=== PATIENT | male | born 1980 | race Caucasian/White ===

== ENCOUNTER 2019-01-08 03:49 | Day surgery (SDC) | payer OTHER ==
--- NOTE | 2019-01-08 04:20 | PDOC ---
Attending Attestation - Resident Resident Name: Diego Vanessason - ED Attending Attestation I have performed the following: I have examined & evaluated the patient, The case was reviewed & discussed with the resident, I agree w/resident's findings & plan - HPI HPI: 01/08/19 04:31 Pt comes with multiple vomiting episodes since midnight; he ate the same thing as the entire family. He has no fever and no chills. RLQ and right kerry pain. Pt has some flank pain but ni dysuria and no penile pain and no testicular pain. - Physicial Exam PE: 01/08/19 04:32 Agree with resident exam - Medical Decision Making 01/08/19 04:33 Pt will have 1L saline and zofran and ofirmev and labs. 01/08/19 05:29 Pt has a 6-7mm stone in the right mid ureter and he will be given morphine and toradol and he will be admitted to med surg for consult. 01/08/19 06:34 We have been textpaging hospitalists since 5am. No response. I txtpaged at 5:45 and 6AM. No response. We will sign out to the day ER team and they will let the day hospitalists know
[2019-01-08] MEDS ORDERED: ACETAMINOPHEN 1000 MG/100 ML VIAL (NON FORMULARY) IVPB ONE (04:32)
[2019-01-08] MEDS ORDERED: SODIUM CHLORIDE 1,000 ML IV STA (04:32)
[2019-01-08] MEDS ORDERED: ONDANSETRON 4 MG/2 ML VIAL IVPB ONE (04:32)
[2019-01-08] MEDS ORDERED: ACETAMINOPHEN INJECTION 100 ML IVPB ONE (04:38)
[2019-01-08] MEDS ORDERED: ONDANSETRON 4 MG/2 ML VIAL ONE (04:39)
--- NOTE | 2019-01-08 04:39 | PDOC ---
History of Present Illness - General Chief Complaint: Pain Stated Complaint: ABDOMINAL PAIN Time Seen by Provider: 01/08/19 04:17 - History of Present Illness Initial Comments: 01/08/19 04:33 38 yo M with no significant pmh who p/w RLQ abdominal pain. Patient reports acute onset of crampy, unremitting, RLQ abdominal pain, beginning at 1200 AM this morning. No identifiable triggers or alleviatrs. Also endorses 3-4 episodes of non bilious, non bloody emesis this morning. Normal bowel habits, and absent BPR. Denies recent travels, sick contacts, or change in diet. Patient denies RICHARDS, vision change palpitations, cough, wheezing, F,C, CP, SOB, urinary complaints, diarrhea, constipation, BPR, hematuria, lightheadedness, weakness, sensory changes. PMHx: as noted above. Denies h/o adbominal surgery, chrocnic NSAID use, prior colonoscopy/endoscopy ROS: as noted SHx: Denies Etoh, tobacco use, IVDA Allergies: NKDA Past History - Past Medical History Allergies/Adverse Reactions: Allergies Allergy/AdvReac Type Severity Reaction Status Date / Time No Known Allergies Allergy Verified 01/08/19 04:12 Home Medications: Ambulatory Orders NK [No Known Home Medication] 01/08/19 Tamsulosin HCl [Flomax] 0.4 mg PO DAILY 7 Days #7 capsule MDD 1 tab 01/08/19 COPD: No - Suicide/Smoking/Psychosocial Hx Smoking History: Never smoked Review of Systems - Review of Systems Comments:: 01/08/19 04:41 GENERAL/CONSTITUTIONAL: No fever or chills. No weakness. HEAD, EYES, EARS, NOSE AND THROAT: No change in vision. No ear pain or discharge. No sore throat. CARDIOVASCULAR: No chest pain or shortness of breath RESPIRATORY: No cough, wheezing, or hemoptysis. GASTROINTESTINAL:+ nausea, vomiting,abdominal pain. No diarrhea or constipation. GENITOURINARY: No dysuria, frequency, or change in urination. MUSCULOSKELETAL: No joint or muscle swelling or pain. No neck or back pain. SKIN: No rash NEUROLOGIC: No headache, vertigo, loss of consciousness, or change in strength/ sensation. ENDOCRINE: No increased thirst. No abnormal weight change HEMATOLOGIC/LYMPHATIC: No anemia, easy bleeding, or history of blood clots. ALLERGIC/IMMUNOLOGIC: No hives or skin allergy. *Physical Exam - Vital Signs Last Vital Signs Temp Pulse Resp BP Pulse Ox 97.4 F L 78 18 137/79 97 01/08/19 04:10 01/08/19 04:10 01/08/19 04:10 01/08/19 04:10 01/08/19 04:10 - Physical Exam Comments: 01/08/19 04:42 GENERAL: Awake, alert, and fully oriented, in no acute distress HEAD: No signs of trauma, normocephalic, atraumatic EYES: PERRLA, EOMI, sclera anicteric, conjunctiva clear ENT: Auricles normal inspection, hearing grossly normal, nares patent, oropharynx clear without exudates. Moist mucosa NECK: Normal ROM, supple, no lymphadenopathy, JVD, or masses LUNGS: No distress, speaks full sentences, clear to auscultation bilaterally HEART: Regular rate and rhythm, normal S1 and S2, no murmurs, rubs or gallops, peripheral pulses normal and equal bilaterally. ABDOMEN: Soft, nontender, normoactive bowel sounds. No guarding, no rebound. No masses GENITOURINARY: Neg scrotal or epidydymal ttp. Absent scrotal lesions, erythema, fluctuance. Neg inguinal lymphadenopathy. Neg penile discharge or lesions. Nml BL cremasteric reflex. EXTREMITIES : Normal inspection, Normal range of motion, no edema. No clubbing or cyanosis. NEUROLOGICAL: Cranial nerves II through XII grossly intact. Normal speech, normal gait, no focal sensorimotor deficits SKIN: Warm, Dry, normal turgor, no rashes or lesions noted Moderate Sedation - Procedure Monitoring Vital Signs: Procedure Monitoring Vital Signs Temperature 97.4 F L 01/08/19 04:10 Pulse Rate 78 01/08/19 04:10 Respiratory Rate 18 01/08/19 04:10 Blood Pressure 137/79 01/08/19 04:10 O2 Sat by Pulse Oximetry (%) 97 01/08/19 04:10 ED Treatment Course - LABORATORY CBC & Chemistry Diagram: 01/08/19 04:30 01/08/19 04:30 Medical Decision Making - Medical Decision Making 01/08/19 04:39 38 yo M with no significant pmh who p/w acute onset of crampy, unremitting, RLQ abdominal pain, beginning at 1200 AM this morning, associated with 3-4 episodes of non bilious emesis. Vitals wnl, AF, A&O3. Physical exam unremarkable. Will consider appendicitis, colitis, nephrolithiasis, pyleonephritis, cystitis, testicular pathology. Low suspicion AAA, Ao dissection. Likely gastroenteritis. ED Course: NS, Zofran, Tylenol 01/08/19 05:13 WBC: 13.3 01/08/19 05:31 BUN/CR: 20/1.5 CT AP: 5.8 mm obstructing proximal R ureteral stone. Right hydronephrosis. Morphine, Toradol 01/08/19 05:35 01/08/19 06:[address] Morales by Dr. Richards Admitted to med/surg *DC/Admit/Observation/Transfer Diagnosis at time of Disposition: Ureteral stone, JUDITH (acute kidney injury) - Discharge Dispostion Condition at time of disposition: Stable Decision to Admit order: Yes - Prescriptions Prescriptions: Tamsulosin HCl [Flomax] 0.4 mg PO DAILY 7 Days #7 capsule MDD 1 tab - Referrals Referrals: Tacos Cervantes MD [Staff Physician] - - Patient Instructions Printed Discharge Instructions: Kidney Stones -- Adult Additional Instructions: Please return to the emergency department with any new or worsening symptoms or concerns. Please follow up with your primary care physician within 72 hours. Please follow up with urology within 48 hours. - Post Discharge Activity
[2019-01-08 04:54] LABS: BASO % 0.3 % (0-2.0); EOS % 0.3 % (0-4.5); HEMATOCRIT 46.2 % (35.4-49); HEMOGLOBIN 15.7 GM/dL (11.7-16.9); LYMPH % 10.1 % (8-40); MCH 28.5 pg (25.7-33.7); MCHC 33.9 g/dl (32.0-35.9); MEAN CELL VOLUME 84.1 fl (80-96); MEAN PLT VOLUME 11.7 fl (7.5-11.1); MONO % 5.1 % (3.8-10.2); NEUT % 84.2 % (42.8-82.8); PLATELET COUNT 210 K/MM3 (134-434); RDW 15.4 % (11.9-15.9); WHITE BLOOD COUNT 13.3 K/mm3 (4.0-10.0)
[2019-01-08] MEDS ORDERED: KETOROLAC TROMETHAMINE 30 MG/1 ML VIAL IVPUSH ONE (05:02)
[2019-01-08] MEDS ORDERED: morphine CARPU-JECT 2 MG/1 ML DISP.SYRIN IVPUSH ONE (05:02)
[2019-01-08 05:08] LABS: INR 1.03 (0.83-1.09); PROTHROMBIN TIME (PATIENT) 12.2 SEC (9.7-13.0)
[2019-01-08] MEDS ORDERED: MORPHINE SULFATE 2 MG/ML VIAL ONE (05:09)
[2019-01-08] MEDS ORDERED: KETOROLAC TROMETHAMINE 30 MG/1 ML VIAL ONE ×2 (05:09→19:25)
[2019-01-08 05:24] LABS: ALBUMIN 3.6 g/dl (3.4-5.0); ALK PHOS 78 U/L (45-117); ANION GAP 6 MMOL/L (8-16); BILIRUBIN,TOTAL 0.3 mg/dL (0.2-1); BLOOD UREA NITROGEN 20 mg/dL (7-18); CALCIUM 8.9 mg/dL (8.5-10.1); CHLORIDE 102 mmol/L (98-107); CO2 28 mmol/L (21-32); CREATININE 1.5 mg/dL (0.55-1.3); GLUCOSE,RANDOM 142 mg/dL (74-106); POTASSIUM 4.3 mmol/L (3.5-5.1); SGOT/AST 22 U/L (15-37); SGPT/ALT 28 U/L (13-61); SODIUM 136 mmol/L (136-145); TOT PROT 7.1 g/dl (6.4-8.2)
[2019-01-08] MEDS ORDERED: SODIUM CHLORIDE 0.9% 500 ML INFUS.BAG IV ONE (05:28)
[2019-01-08 07:38] LABS: URINE APPEARANCE CLEAR; URINE BILIRUBIN NEGATIVE (<2.0 mg/dL); URINE COLOR YELLOW; URINE GLUCOSE (UA) NEGATIVE (NEGATIVE); URINE KETONE NEGATIVE (NEGATIVE); URINE LEUK ESTERASE NEGATIVE (NEGATIVE); URINE NITRITE NEGATIVE (NEGATIVE); URINE PROTEIN 1+ (NEGATIVE); URINE UROBILINOGEN NEGATIVE mg/dL (0.2-1.0)
--- NOTE | 2019-01-08 08:44 | HP ---
CHIEF COMPLAINT: RUQ pain PCP: HISTORY OF PRESENT ILLNESS: 38 y/o M w/PMH of GERD presents to the ER with R sided abdominal pain that started suddenly last night at approximately 1 am. Pt is [place] speaking. He reports being in usual state of health previously to the pain and had severe pain that caused him to throw up countless times. Vomit was non-bloody. Pain was sharp, constant, relieved with vomiting initially but subsequently returned prompting him to come to the ER. He reports having a pain in a similar area approximately 10 years ago in the [place] but no investigation was done. Pt was not able to urinate last night from pain but urinated in ER after receiving pain medication. Urine at that time was without blood and he had no dyusria. He denies any fevers, chills, chest pain, sob, LE edema, dizziness, sick contacts, change in diet. Last BM was one day ago and without blood. At this time after pain meds and zofran he no longer is nauseous and does not have any pain. ER course was notable for: (1) ofirmev, morphine, toradol (2) (3) PAST MEDICAL HISTORY: GERD PAST SURGICAL HISTORY: no surgeries Social History: Smoking: denies Alcohol: social Drugs: denies Family History: denies any FH Allergies No Known Allergies Allergy (Verified 01/08/19 04:12) HOME MEDICATIONS: Home Medications Medication Instructions Recorded NK [No Known Home Medication] 01/08/19 Tamsulosin HCl [Flomax] 0.4 mg PO DAILY 7 Days #7 capsule 01/08/19 MDD 1 tab REVIEW OF SYSTEMS CONSTITUTIONAL: Absent: fever, chills CARDIOVASCULAR: Absent: chest pain, lightheadedness, peripheral edema RESPIRATORY: Absent: cough, shortness of breath GASTROINTESTINAL: +abd pain, nausea, vomiting Absent: diarrhea, constipation, hematochezia GENITOURINARY: Absent: dysuria, frequency, hematuria NEUROLOGIC: Absent: headache, dizziness PHYSICAL EXAMINATION Vital Signs - 24 hr 01/08/19 04:10 Temperature 97.4 F L Pulse Rate 78 Respiratory 18 Rate Blood Pressure 137/79 O2 Sat by Pulse 97 Oximetry (%) GENERAL: Awake, alert, and fully oriented, in no acute distress. HEAD: Normal with no signs of trauma. EYES: extraocular movements intact, sclera anicteric, conjunctiva clear. EARS, NOSE, THROAT: Ears normal, nares patent NECK: Normal range of motion, supple LUNGS: Breath sounds equal, clear to auscultation bilaterally. No wheezes, and no crackles. No accessory muscle use. HEART: Regular rate and rhythm, normal S1 and S2 without murmur, rub or gallop. ABDOMEN: Soft, nontender, not distended, normoactive bowel sounds. MUSCULOSKELETAL: No CVA tenderness. LOWER EXTREMITIES: warm, well-perfused. No calf tenderness. No peripheral edema. NEUROLOGICAL: Cranial nerves II-XII grossly intact. Normal speech. Gait not observed. PSYCHIATRIC: Cooperative. Good eye contact. Appropriate mood and affect. SKIN: Warm, dry Laboratory Results - last 24 hr 01/08/19 01/08/19 01/08/19 04:30 04:30 04:30 WBC 13.3 H RBC 5.50 Hgb 15.7 Hct 46.2 MCV 84.1 MCH 28.5 MCHC 33.9 RDW 15.4 Plt Count 210 MPV 11.7 H Absolute Neuts (auto) 11.2 H Neutrophils % 84.2 H Lymphocytes % 10.1 Monocytes % 5.1 Eosinophils % 0.3 Basophils % 0.3 Nucleated RBC % 0 PT with INR 12.20 INR 1.03 Sodium 136 Potassium 4.3 Chloride 102 Carbon Dioxide 28 Anion Gap 6 L BUN 20 H Creatinine 1.5 H Creat Clearance w eGFR 52.38 Random Glucose 142 H Calcium 8.9 Total Bilirubin 0.3 AST 22 ALT 28 Alkaline Phosphatase 78 Total Protein 7.1 Albumin 3.6 Lipase Urine Color Urine Appearance Urine pH Ur Specific [place] Urine Protein Urine Glucose (UA) Urine Ketones Urine Blood Urine Nitrite Urine Bilirubin Urine Urobilinogen Ur Leukocyte Esterase Blood Type Antibody Screen 01/08/19 01/08/19 01/08/19 04:30 04:30 07:18 WBC RBC Hgb Hct MCV MCH MCHC RDW Plt Count MPV Absolute Neuts (auto) Neutrophils % Lymphocytes % Monocytes % Eosinophils % Basophils % Nucleated RBC % PT with INR INR Sodium Potassium Chloride Carbon Dioxide Anion Gap BUN Creatinine Creat Clearance w eGFR Random Glucose Calcium Total Bilirubin AST ALT Alkaline Phosphatase Total Protein Albumin Lipase 240 Urine Color Yellow Urine Appearance Clear Urine pH 6.0 Ur Specific [place] 1.026 Urine Protein 1+ H Urine Glucose (UA) Negative Urine Ketones Negative Urine Blood 2+ H Urine Nitrite Negative Urine Bilirubin Negative Urine Urobilinogen Negative Ur Leukocyte Esterase Negative Blood Type O POSITIVE Antibody Screen Negative Imaging: Abd/pelvis CT: IIMPRESSION: Punctate nonobstructing left renal stones. 6 x 5 x 8 mm obstructing stone in the proximal right ureter with mild-to- moderate hydronephrosis and mild stranding of the perinephric fat. Active Medications Ceftriaxone Sodium 1 gm/ (Dextrose) 50 mls @ 100 mls/hr IVPB DAILY HALIMA Sodium Chloride (Normal Saline -) 1,000 mls @ 150 mls/hr IV ASDIR HALIMA Morphine Sulfate (Morphine Sulfate) 2 mg IVPUSH Q4H PRN PRN Reason: PAIN LEVEL 6-10 Ondansetron HCl (Zofran Injection) 4 mg IVPUSH Q6H PRN PRN Reason: NAUSEA ASSESSMENT/PLAN: 38 y/o M w/PMH of GERD presents to the ER with R sided abdominal pain and found to have obstructing R ureteral stone with hydronephrosis. -JUDITH secondary to hydronephrosis from R ureteral obstructing stone -NS @ 150 ml/hr -UA pending WBC count, will cover with ceftriaxone 1g qd especially considering elevated WBC in blood currently -Urology consult - Case discussed with Dr. Cervantes -To be kept NPO, Pre-op bloodwork, EKG, for OR today for possible stenting -f/u UCx -Pain control with morphine 2mg q4h -Zofran 4mg IV q6h PRN for nausea -Strain urine for stone collection and analysis -Flomax 0.4mg -DVT ppx -SCDs for now -FEN -NS @ 150 ml/hr -Monitor electrolytes -NPO -Dispo: Admit to M/S Visit type - Emergency Visit Emergency Visit: Yes ED Registration Date: 01/08/19 Care time: The patient presented to the Emergency Department on the above date and was hospitalized for further evaluation of their emergent condition. - New Patient This patient is new to me today: Yes Date on this admission: 01/08/19 - Critical Care Critical Care patient: No
[2019-01-08 09:03] LABS: EPI CELLS RARE /HPF (FEW); URINE MUCUS RARE
[2019-01-08] MEDS ORDERED: MORPHINE SULFATE 2 MG/ML VIAL IVPUSH PRN ×2 (09:29→20:20)
[2019-01-08] MEDS: SODIUM CHLORIDE 1,000 ML IV SCH ×2 (09:30→14:01)
[2019-01-08] MEDS ORDERED: ONDANSETRON 4 MG/2 ML VIAL IVPUSH PRN ×3 (09:53→20:20)
[2019-01-08] MEDS ORDERED: TAMSULOSIN HCL 0.4 MG CAP PO ONE (09:56)
[2019-01-08] MEDS ORDERED: CEFTRIAXONE 1 GM in DEXTROSE 5%-WATER - 50 ML IVPB SCH (10:00)
[2019-01-08] MEDS ORDERED: CEFTRIAXONE 1 GM/50 ML BAG ONE (10:02)
[2019-01-08] MEDS ORDERED: TAMSULOSIN HCL 0.4 MG CAP ONE (10:02)
--- NOTE | 2019-01-08 10:08 | PN ---
Teaching Attending Note Name of Resident: Pop Mallory ATTENDING PHYSICIAN STATEMENT I saw and evaluated the patient. I reviewed the resident's note and discussed the case with the resident. I agree with the resident's findings and plan as documented. SUBJECTIVE: This is a 38 year old man with a history of GERD who comes to the ED complaining of right flank and abdominal pain that came on suddenly at 1 am. This was associated with non-bloody, non-bilious vomiting. He denies fever, chills, melena, rectal bleeding, dysuria, hematuria, urinary frequency. He had a similar episode ~10 years ago while in but did not have an evaluation at the time. OBJECTIVE: Vital Signs Period Temp Pulse Resp BP Sys/Gonzalez Pulse Ox Last 24 Hr 97.4 F 78 18 137/79 97 HEART: S1S2, RRR LUNGS: Clear ABDOMEN: Soft, non-tender, non-distended, normal BS, no CVA/flank tenderness EXTREMITIES: No edema Laboratory Tests 01/08/19 01/08/19 01/08/19 04:30 04:30 04:30 WBC 13.3 H RBC 5.50 Hgb 15.7 Hct 46.2 MCV 84.1 MCH 28.5 MCHC 33.9 RDW 15.4 Plt Count 210 MPV 11.7 H Absolute Neuts (auto) 11.2 H Neutrophils % 84.2 H Lymphocytes % 10.1 Monocytes % 5.1 Eosinophils % 0.3 Basophils % 0.3 Nucleated RBC % 0 PT with INR 12.20 INR 1.03 Sodium 136 Potassium 4.3 Chloride 102 Carbon Dioxide 28 Anion Gap 6 L BUN 20 H Creatinine 1.5 H Creat Clearance w eGFR 52.38 Random Glucose 142 H Calcium 8.9 Total Bilirubin 0.3 AST 22 ALT 28 Alkaline Phosphatase 78 Total Protein 7.1 Albumin 3.6 Lipase Urine Color Urine Appearance Urine pH Ur Specific [place] Urine Protein Urine Glucose (UA) Urine Ketones Urine Blood Urine Nitrite Urine Bilirubin Urine Urobilinogen Ur Leukocyte Esterase Urine WBC (Auto) Urine RBC (Auto) Ur Epithelial Cells Urine Mucus Blood Type Antibody Screen 01/08/19 01/08/19 01/08/19 04:30 04:30 07:18 WBC RBC Hgb Hct MCV MCH MCHC RDW Plt Count MPV Absolute Neuts (auto) Neutrophils % Lymphocytes % Monocytes % Eosinophils % Basophils % Nucleated RBC % PT with INR INR Sodium Potassium Chloride Carbon Dioxide Anion Gap BUN Creatinine Creat Clearance w eGFR Random Glucose Calcium Total Bilirubin AST ALT Alkaline Phosphatase Total Protein Albumin Lipase 240 Urine Color Yellow Urine Appearance Clear Urine pH 6.0 Ur Specific [place] 1.026 Urine Protein 1+ H Urine Glucose (UA) Negative Urine Ketones Negative Urine Blood 2+ H Urine Nitrite Negative Urine Bilirubin Negative Urine Urobilinogen Negative Ur Leukocyte Esterase Negative Urine WBC (Auto) 4 Urine RBC (Auto) 17 Ur Epithelial Cells Rare Urine Mucus Rare Blood Type O POSITIVE Antibody Screen Negative 01/08/19 08:12 WBC RBC Hgb Hct MCV MCH MCHC RDW Plt Count MPV Absolute Neuts (auto) Neutrophils % Lymphocytes % Monocytes % Eosinophils % Basophils % Nucleated RBC % PT with INR INR Sodium Potassium Chloride Carbon Dioxide Anion Gap BUN Creatinine Creat Clearance w eGFR Random Glucose Calcium Total Bilirubin AST ALT Alkaline Phosphatase Total Protein Albumin Lipase Urine Color Urine Appearance Urine pH Ur Specific [place] Urine Protein Urine Glucose (UA) Urine Ketones Urine Blood Urine Nitrite Urine Bilirubin Urine Urobilinogen Ur Leukocyte Esterase Urine WBC (Auto) Urine RBC (Auto) Ur Epithelial Cells Urine Mucus Blood Type O POSITIVE Antibody Screen Home Medications Medication Instructions Recorded NK [No Known Home Medication] 01/08/19 Tamsulosin HCl [Flomax] 0.4 mg PO DAILY 7 Days #7 capsule 01/08/19 MDD 1 tab ASSESSMENT AND PLAN: This is a 38 year old man with a history of GERD who presented to the ED with sudden onset of right flank and abdominal pain with vomiting. 1. Acute kidney injury secondary to obstructing right proximal ureteral stone - NPO - IV fluid - Start ceftriaxone, Flomax - Pain control - Zofran as needed for nausea - Monitor BUN, creatinine - Follow up urine culture - Strain urine - Urology consult for possible lithotripsy, stent placement
--- NOTE | 2019-01-08 12:46 | CON.GU ---
Consult Consult Specialty:: Reason for Consultation:: R ureteral calculus - History of Present Illness Chief Complaint: R flank pain History of Present Illness: 38 y/o M w/PMH of GERD presents to the ER with R sided abdominal pain that started suddenly last night at approximately 1 am. Pt is [place] speaking. He reports being in usual state of health previously to the pain and had severe pain that caused him to throw up countless times. Vomit was non-bloody. Pain was sharp, constant, relieved with vomiting initially but subsequently returned prompting him to come to the ER. He reports having a pain in a similar area approximately 10 years ago in the [place] but no investigation was done. Pt was not able to urinate last night from pain but urinated in ER after receiving pain medication. Urine at that time was without blood and he had no dyusria. He denies any fevers, chills, chest pain, sob, LE edema, dizziness, sick contacts, change in diet. Last BM was one day ago and without blood. At this time after pain meds and zofran he no longer is nauseous and does not have any pain. CTAP showed 8 mm obstructing R proximal ureteral calulus w mod hydro and cons req. - History Source History Provided By: Patient, Medical Record Limitations to Obtaining History: No Limitations - Past Medical History Gastrointestinal: Yes: GERD - Smoking History Smoking history: Never smoked Home Medications - Allergies Allergies/Adverse Reactions: Allergies Allergy/AdvReac Type Severity Reaction Status Date / Time No Known Allergies Allergy Verified 01/08/19 04:12 - Home Medications Home Medications: Ambulatory Orders NK [No Known Home Medication] 01/08/19 Tamsulosin HCl [Flomax] 0.4 mg PO DAILY 7 Days #7 capsule MDD 1 tab 01/08/19 Review of Systems - Review of Systems Gastrointestinal: reports: Nausea, Vomiting Genitourinary: reports: Flank Pain Physical Exam- Vital Signs: Vital Signs Temperature 98.9 F 01/08/19 09:54 Pulse Rate 97 H 01/08/19 09:54 Respiratory Rate 20 01/08/19 09:54 Blood Pressure 131/78 01/08/19 09:54 O2 Sat by Pulse Oximetry (%) 99 01/08/19 09:00 Renal/: Yes: CVA Tenderness - Right Labs: CBC, BMP 01/08/19 04:30 02/25/19 04:30 Imaging - Results Cat Scan: Report Reviewed Problem List - Problems (1) Hydronephrosis concurrent with and due to calculi of kidney and ureter Assessment/Plan: cysto and R JJ stent insertion Code(s): N13.2 - HYDRONEPHROSIS WITH RENAL AND URETERAL CALCULOUS OBSTRUCTION (2) JUDITH (acute kidney injury) Code(s): N17.9 - ACUTE KIDNEY FAILURE, UNSPECIFIED (3) Ureteral stone Code(s): N20.1 - CALCULUS OF URETER
[2019-01-08 13:00] VITALS: BMI 26.8
--- NOTE | 2019-01-08 15:16 | OP ---
Operative Note - Note: Operative Date: 01/08/19 Pre-Operative Diagnosis: R ureteral calculus, R hydronephrosis Operation: cystoscopy and R JJ stent insertion Findings: 8 mm R proximal ureteral calculus w mod hydro Post-Operative Diagnosis: Same as Pre-op Surgeon: Tacos Cervantes Anesthesiologist/STRIP WINDER: Trevor Campos Anesthesia: General Estimated Blood Loss (mls): 0 Drains & Tubes with Location: 7 fr 28 cm R JJ stent Operative Report Dictated: Yes
[2019-01-08] MEDS ORDERED: LACTATED RINGERS SOLUTION 1,000 ML IV SCH (19:15)
[2019-01-08] MEDS ORDERED: MIDAZOLAM HCL 2 MG/2 ML SINGLE DOSE VIAL ONE (19:19)
[2019-01-08] MEDS ORDERED: PROPOFOL 20 ML ONE ×2 (19:21→19:34)
[2019-01-08] MEDS ORDERED: LIDOCAINE HCL/PF 2% SDV 5ML VIAL ONE (19:21)
[2019-01-08] MEDS ORDERED: DEXAMETHASONE SOD PHOSPHATE 4 MG/1 ML VIAL ONE (19:25)
[2019-01-08] MEDS ORDERED: ceFAZolin 2 GRAM PREMIX BAG IVPB ONE (19:34)
[2019-01-08] MEDS ORDERED: ceFAZolin SODIUM 1 GM VIAL IVPB ONE (19:34)
[2019-01-08] MEDS ORDERED: ceFAZolin SODIUM 1 GM VIAL ONE (19:39)
[2019-01-08] MEDS ORDERED: LIDOCAINE HCL 2% JELLY 10 ML CARTRIDGE TP ONE ×2 (19:47)
--- NOTE | 2019-01-08 20:24 | EKG ---
Test Reason : Blood Pressure : / mmHG Vent. Rate : 081 BPM Atrial Rate : 081 BPM P-R Int : 126 ms QRS Dur : 088 ms QT Int : 356 ms P-R-T Axes : 031 000 003 degrees QTc Int : 413 ms NORMAL SINUS RHYTHM NONSPECIFIC T WAVE ABNORMALITY ABNORMAL ECG NO PREVIOUS ECGS AVAILABLE Confirmed by ELINA VENEGAS, JOHANA ([id number]) on 01/08/2019 8:24:06 PM Referred By: MARYANN CUMMINGS Confirmed By:JOHANA ANTOINE MD
[2019-01-08] MEDS: LACTATED RINGERS SOLUTION 1,000 ML IV SCH ×2 (21:00)
[2019-01-09] MEDS: oxyCODONE HCL 5 MG TABLET PO PRN ×2 (06:34→14:04)
[2019-01-09] MEDS: ACETAMINOPHEN 325 MG TABLET (FP) PO PRN ×2 (06:35→14:06)
[2019-01-09] MEDS: LACTATED RINGERS SOLUTION 1,000 ML IV SCH (06:36)
[2019-01-09 06:59] LABS: BASO % 0.2 % (0-2.0); HEMATOCRIT 40.4 % (35.4-49); HEMOGLOBIN 13.7 GM/dL (11.7-16.9); LYMPH % 6.3 % (8-40); MCH 28.5 pg (25.7-33.7); MCHC 33.9 g/dl (32.0-35.9); MEAN CELL VOLUME 83.9 fl (80-96); MEAN PLT VOLUME 10.5 fl (7.5-11.1); MONO % 3.1 % (3.8-10.2); NEUT % 90.4 % (42.8-82.8); PLATELET COUNT 163 K/MM3 (134-434); RBC 4.82 M/mm3 (4.00-5.60); RDW 15.1 % (11.9-15.9); WHITE BLOOD COUNT 9.9 K/mm3 (4.0-10.0)
[2019-01-09 07:33] LABS: ALK PHOS 64 U/L (45-117); ANION GAP 5 MMOL/L (8-16); BILIRUBIN,TOTAL 0.4 mg/dL (0.2-1); BLOOD UREA NITROGEN 18 mg/dL (7-18); CALCIUM 8.3 mg/dL (8.5-10.1); CHLORIDE 106 mmol/L (98-107); CO2 27 mmol/L (21-32); CREATININE 1.2 mg/dL (0.55-1.3); GLUCOSE,RANDOM 119 mg/dL (74-106); MAGNESIUM 1.9 mg/dL (1.8-2.4); PHOSPHOROUS 4.1 mg/dL (2.5-4.9); POTASSIUM 4.5 mmol/L (3.5-5.1); SGOT/AST 22 U/L (15-37); SGPT/ALT 31 U/L (13-61); SODIUM 138 mmol/L (136-145); TOT PROT 6.1 g/dl (6.4-8.2)
[2019-01-09 08:26] VITALS: BP 130/88; PULSE 87; TEMP 98.3
--- NOTE | 2019-01-09 09:18 | PN ---
Physical Exam: SUBJECTIVE: Patient seen and examined OBJECTIVE: Vital Signs Period Temp Pulse Resp BP Sys/Gonzalez Pulse Ox Last 24 Hr 97.6 F-98.9 F 71-97 15-20 115-138/61-89 96-99 GENERAL: The patient is awake, alert, and fully oriented, in no acute distress. HEAD: Normal with no signs of trauma. EYES: PERRL, extraocular movements intact, sclera anicteric, conjunctiva clear. No ptosis. ENT: Ears normal, nares patent, oropharynx clear without exudates, moist mucous membranes. NECK: Trachea midline, full range of motion, supple. LUNGS: Breath sounds equal, clear to auscultation bilaterally, no wheezes, no crackles, no accessory muscle use. HEART: Regular rate and rhythm, S1, S2 without murmur, rub or gallop. ABDOMEN: Soft, nontender, nondistended, normoactive bowel sounds, no guarding, no rebound, no hepatosplenomegaly, no masses. EXTREMITIES: 2+ pulses, warm, well-perfused, no edema. NEUROLOGICAL: Cranial nerves II through XII grossly intact. Normal speech, gait not observed. PSYCH: Normal mood, normal affect. SKIN: Warm, dry, normal turgor, no rashes or lesions noted Laboratory Results - last 24 hr 01/08/19 01/08/19 01/08/19 07:18 08:12 11:12 WBC RBC Hgb Hct MCV MCH MCHC RDW Plt Count MPV Absolute Neuts (auto) Neutrophils % Lymphocytes % Monocytes % Eosinophils % Basophils % Nucleated RBC % PTT (Actin FS) 27.4 Sodium Potassium Chloride Carbon Dioxide Anion Gap BUN Creatinine Creat Clearance w eGFR Random Glucose Calcium Phosphorus Magnesium Total Bilirubin AST ALT Alkaline Phosphatase Total Protein Albumin Urine WBC (Auto) 4 Urine RBC (Auto) 17 Ur Epithelial Cells Rare Urine Mucus Rare Blood Type O POSITIVE 01/09/19 01/09/19 06:45 06:45 WBC 9.9 RBC 4.82 Hgb 13.7 Hct 40.4 MCV 83.9 MCH 28.5 MCHC 33.9 RDW 15.1 Plt Count 163 D MPV 10.5 D Absolute Neuts (auto) 9.0 H Neutrophils % 90.4 H Lymphocytes % 6.3 L D Monocytes % 3.1 L Eosinophils % 0.0 D Basophils % 0.2 Nucleated RBC % 0 PTT (Actin FS) Sodium 138 Potassium 4.5 Chloride 106 Carbon Dioxide 27 Anion Gap 5 L BUN 18 Creatinine 1.2 Creat Clearance w eGFR > 60 Random Glucose 119 H Calcium 8.3 L Phosphorus 4.1 Magnesium 1.9 Total Bilirubin 0.4 AST 22 ALT 31 Alkaline Phosphatase 64 Total Protein 6.1 L Albumin 3.0 L Urine WBC (Auto) Urine RBC (Auto) Ur Epithelial Cells Urine Mucus Blood Type Active Medications Generic Name Dose Route Start Last Admin Trade Name Bartolomeq PRN Reason Stop Dose Admin Acetaminophen 650 mg 01/08/19 19:55 01/09/19 06:35 Tylenol - PO 01/09/19 19:54 650 mg Q4HPO PRN Administration PAIN LEVEL 4 - 6 Fentanyl 50 mcg 01/08/19 20:20 Sublimaze Injection - IVPUSH [id number] PRN PAIN-PACU ORDER X 4 DOSES ONLY Ceftriaxone Sodium 1 gm/ 50 mls @ 100 mls/hr 01/09/19 10:00 Dextrose IVPB DAILY HALIMA Lactated Ringer's 1,000 mls @ 75 mls/hr 01/08/19 20:20 01/09/19 06:36 Lactated Ringers Solution IV 75 mls/hr ASDIR HALIMA Administration Morphine Sulfate 2 mg 01/08/19 20:20 01/08/19 23:24 Morphine Sulfate IVPUSH 2 mg Q4H PRN Administration PAIN LEVEL 6-10 Ondansetron HCl 4 mg 01/08/19 20:20 Zofran Injection IVPUSH Q6H PRN NAUSEA Oxycodone HCl 10 mg 01/08/19 20:12 01/09/19 06:34 Roxicodone - PO 01/09/19 20:11 10 mg Q4HPO PRN Administration PAIN LEVEL 4 - 6 Polyethylene Glycol 17 gm 01/09/19 10:00 Miralax (For Daily Use) - PO BID HALIMA CBC, BMP 01/09/19 06:45 01/09/19 06:45 ASSESSMENT/PLAN:
[2019-01-09] MEDS ORDERED: cefTRIAXone SODIUM 1 GM VIAL ONE (09:32)
[2019-01-09] MEDS ORDERED: DEXTROSE 5%-WATER - 50 ML IVPB ONE (09:32)
[2019-01-09] MEDS ORDERED: CEFTRIAXONE 1 GM in DEXTROSE 5%-WATER - 50 ML IVPB SCH (10:00)
[2019-01-09] MEDS ORDERED: POLYETHYLENE GLYCOL 3350 119 GM BTL PO SCH (10:00)
--- NOTE | 2019-01-09 12:56 | DS ---
Physical Exam: SUBJECTIVE: Patient seen and examined at bed side , presented with sever right flank pain and was found to have obstructed proximal ureteral stone , S/P cystoscopy and stent placement by Urologist Dr Cervantes on my present pt denies any pain , fever, chills, N/V he reports pain when passing urine. pt will be send home with bactrim , folmax and Percocet. OBJECTIVE: Vital Signs Period Temp Pulse Resp BP Sys/Gonzalez Pulse Ox Last 24 Hr 97.6 F-98.5 F 71-97 15-20 115-138/61-89 96-99 PHYSICAL EXAM GENERAL:AAOx3 in AND HEAD: NC/AT EYES: PERRL, EOMI , conjunctiva clear. LUNGS: Breath sounds equal, clear to auscultation bilaterally, no wheezes, no crackles, no accessory muscle use. HEART: Regular rate and rhythm, S1, S2 without murmur, rub or gallop. ABDOMEN: obese, Soft, nontender, nondistended, normoactive bowel sounds, NEUROLOGICAL: No focal deficit . Normal speech, gait not observed. PSYCH: Normal mood, normal affect. SKIN: Warm, dry, normal turgor, LABS Laboratory Results - last 24 hr 01/09/19 01/09/19 06:45 06:45 WBC 9.9 RBC 4.82 Hgb 13.7 Hct 40.4 MCV 83.9 MCH 28.5 MCHC 33.9 RDW 15.1 Plt Count 163 D MPV 10.5 D Absolute Neuts (auto) 9.0 H Neutrophils % 90.4 H Lymphocytes % 6.3 L D Monocytes % 3.1 L Eosinophils % 0.0 D Basophils % 0.2 Nucleated RBC % 0 Sodium 138 Potassium 4.5 Chloride 106 Carbon Dioxide 27 Anion Gap 5 L BUN 18 Creatinine 1.2 Creat Clearance w eGFR > 60 Random Glucose 119 H Calcium 8.3 L Phosphorus 4.1 Magnesium 1.9 Total Bilirubin 0.4 AST 22 ALT 31 Alkaline Phosphatase 64 Total Protein 6.1 L Albumin 3.0 L CBC, BMP 01/09/19 06:45 01/09/19 06:45 CT Abdomen/pelvic 01/08/2019 Punctate nonobstructing left renal stones. 6 x 5 x 8 mm obstructing stone in the proximal right ureter with [id number] hydronephrosis and mild stranding of the perinephric fat. HOSPITAL COURSE: Date of Admission:01/08/19 Date of Discharge: 01/09/19 38 y/o man with h/o GERD who presented with R flank pain and was found to have Right proximal ureteral stone and hydro. Now s/p R JJ stent placement. pt feels better with intermittent pain in R flank with urination which is expected. bactrim were felt necessary per uro, and prescribed. urine cx to be followed by uro after dc pain control after dc per uro Percocet Q 4 hr as needed for pain , flomax 0.4 mg daily for 7 days. f/u with uro for change/removal of stent when appropriate discharged home.will follow with primary and Urologist. DR Cervantes. Minutes to complete discharge: 45 Discharge Summary Reason For Visit: ACUTE KIDNEY INJURY,CALCULUS OF URETER Current Active Problems Ureteral stone (Acute) Condition: Stable - Instructions Diet, Activity, Other Instructions: you presented to the hospital due to kidney stone , stent was placed to relife the ureter obstruction Please take following meds prescribed by your urologist Bactrim antibiotic twice daily for 7 days Percocet (5-325) 1 tab every 4 hours for pain flomax 0.4 mg daily for 7 days to help passing the stone Please return to the emergency department with any new or worsening symptoms or concerns. Please follow up with your primary care physician within 72 hours. Please follow up with urology within [address] Cervantes to follow the final urine culture Referrals: Tacos Cervantes MD [Staff Physician] - Disposition: HOME - Home Medications Comprehensive Discharge Medication List: Ambulatory Orders Oxycodone HCl/Acetaminophen [Percocet 5-325 mg Tablet] 1 - 2 tab PO Q4H PRN #20 tablet MDD 6 01/08/19 Sulfamethoxazole/Trimethoprim [Bactrim Ds Tablet] 1 each PO BID 7 Days #14 tablet 01/08/19 Tamsulosin HCl [Flomax] 0.4 mg PO DAILY 7 Days #7 capsule MDD 1 tab 01/08/19 This patient is new to me today: Yes Date on this admission: 01/09/19 Emergency Visit: Yes Care time: The patient presented to the Emergency Department on the above date and was hospitalized for further evaluation of their emergent condition. Critical Care patient: No - Discharge Referral Referred to [facility] Med [facility] No
--- NOTE | 2019-01-09 13:13 | PN ---
Teaching Attending Note Name of Resident: Dwayne Sanford ATTENDING PHYSICIAN STATEMENT I saw and evaluated the patient. I reviewed the resident's note and discussed the case with the resident. I agree with the resident's findings and plan as documented. SUBJECTIVE: No fever or chills. has R flank pain with urination only. pinkish urine , no abd pain. No N/V OBJECTIVE: NAD Cv: RRR Lungs: CTAB ext : no edema or erythema Abd: soft, NT, ND, NL BS , no CVA tenderness ASSESSMENT AND PLAN: 38 y/o man with h/o GERD who presented with R flank pain and was found to have R ureteral stone and hydro. Now s/p R JJ stent placement. 1- R ureteral stone and hydro s/p JJ stent. feels better with intermittent pain in R flank with urination which is expected. Abx were felt necessary per uro, and prescribed. urine cx to be followed by uro after dc pain control after dc per uro f/u with uro for change/removal of stent when appropriate flomax after dc dc home
== END 2019-01-09 14:29 | disposition home or self-care (01) ==
LOC: EDBD → JER 03:49 → JERBED 05:33 → JASUSAT 05:33 → UNDOADMOB 05:33 → SUATTDRO 05:33 → J7W 11:31 → JERBED 11:31 → J7W 11:31 → JASUSAT 17:15
PROVIDERS: ATTEND Internal Medicine
PROC: 0TP97DZ Removal of Intraluminal Device from Ureter, Via Natural or Artificial Opening (ICD-10-PCS; principal; 2019-01-08 20:00)
PROC: 0T767DZ Dilation of Right Ureter with Intraluminal Device, Via Natural or Artificial Opening (ICD-10-PCS; 2019-01-08 20:00)
DX: N20.1 Calculus of ureter (principal); N13.30 Unspecified hydronephrosis
CPT/HCPCS: 36415; 74176-TC; 76000-TC-FY; 80053; 81003; 81015; 83690; 83735; 84100; 85025; 85610; 85730; 86850; 86900; 86901; 87086; 93005; 93010; 99285-25; J0131; J7030

== ENCOUNTER 2019-01-12 10:14 | Day surgery (SDC) | payer SELFPAY ==
[2019-01-11 16:59] VITALS: BMI 26.7
--- NOTE | 2019-01-12 11:18 | HP ---
History & Physical Update - History History: No Change - Physical Physical: No Change - Assessment Assessment: No Change - Plan Plan: No Change
--- NOTE | 2019-01-12 11:20 | OP ---
Operative Note - Note: Operative Date: 01/12/19 Pre-Operative Diagnosis: R ureteral calculus, R hydronephrosis Operation: R ureteroscopy and JJ stent change Findings: 8 mm R ureteral calculus Post-Operative Diagnosis: Same as Pre-op (Passed R ureteral calculus) Surgeon: Tacos Cervantes Anesthesiologist/OBSTETRICS GYNECOLOGY MD: Tayla Medina Anesthesia: General Specimens Removed: R JJ stent Estimated Blood Loss (mls): 0 Drains & Tubes with Location: 7 fr 28 cm R JJ stent Operative Report Dictated: Yes
[2019-01-12] MEDS ORDERED: PROPOFOL 20 ML ONE ×2 (11:26)
[2019-01-12] MEDS ORDERED: LIDOCAINE HCL 2% JELLY 10 ML CARTRIDGE ONE (11:40)
[2019-01-12] MEDS ORDERED: DESFLURANE GAS 240 ML BOTTLE IH ONE (11:40)
[2019-01-12] MEDS ORDERED: ceFAZolin SODIUM 1 GM VIAL IVPB ONE (11:45)
[2019-01-12] MEDS ORDERED: ceFAZolin SODIUM 1 GM VIAL ONE (11:45)
[2019-01-12] MEDS ORDERED: DEXAMETHASONE SOD PHOSPHATE 4 MG/1 ML VIAL ONE (11:56)
[2019-01-12] MEDS ORDERED: LIDOCAINE HCL 2% JELLY 10 ML CARTRIDGE TP ONE (12:04)
[2019-01-12] MEDS ORDERED: KETOROLAC TROMETHAMINE 30 MG/1 ML VIAL ONE (12:05)
[2019-01-12] MEDS ORDERED: ONDANSETRON 4 MG/2 ML VIAL IVPUSH PRN (12:26)
[2019-01-12] MEDS ORDERED: ACETAMINOPHEN 325 MG TABLET (FP) PO PRN (12:26)
[2019-01-12] MEDS ORDERED: oxyCODONE HCL 5 MG TABLET PO PRN (12:26)
[2019-01-12] MEDS ORDERED: LACTATED RINGERS SOLUTION 1,000 ML IV SCH (12:30)
[2019-01-12 15:16] VITALS: BP 128/78; PULSE 82; TEMP 98
--- NOTE | 2019-01-13 07:07 | OP ---
DATE OF OPERATION: 01/12/2019 PREOPERATIVE DIAGNOSES: Right ureteral calculus, right hydronephrosis. POSTOPERATIVE DIAGNOSES: Right ureteral calculus, right hydronephrosis (passed right ureteral calculus). PROCEDURE: Right ureteroscopy and double-J stent change. SURGEON: Tacos Lopez MD EMR IMPLEMENTATION SPECIALIST: None. ANESTHESIA: General via laryngeal mask. ANESTHESIOLOGIST: Tayla Medina, REF-DO SPECIMENS: Right double-J stent. CULTURES: None. DRAINS: Right 7-Bahamian, 28-cm double-J stent. ESTIMATED BLOOD LOSS: None. COMPLICATIONS: None. PROCEDURE: Patient was brought in the operating room, placed on the operating table in the supine position. After administration of general anesthesia via laryngeal mask intravenous antibiotics were administered. Sequential compression devices were placed. Patient was placed in the dorsal lithotomy position. The perineum and genitals were prepped and draped in the usual sterile manner. A 22-Bahamian cystoscope was inserted into the bladder under direct vision. Anterior and posterior urethras were normal. The bladder was entered, thoroughly inspected. There were no tumors, stones or inflammation. Right double-J stent was in good position. It was grasped at its tip, brought to the urethral meatus, cannulated with a 0.038 guidewire which was advanced to the level of the right renal pelvis under fluoroscopic guidance. Double-J stent was removed. The semirigid ureteroscope was now inserted alongside the guidewire to the level of the proximal ureter where no stone was seen. Under fluoroscopy now retrograde pyelogram was done. Also no stone was seen. There was prompt drainage of contrast and no hydronephrosis. The ureteroscope was withdrawn. The entire course of the ureter was reinspected and no stone was seen. The ureteroscope was removed, the cystoscope back-loaded and a 7-Bahamian, 28-cm right double-J stent was inserted over the guidewire under direct visual and fluoroscopic guidance leaving 1 coil in the renal pelvis and 1 coil in the bladder. Bladder was emptied, cystoscope removed. Lidocaine gel 2%, 10 mL, was instilled per urethra. Tolerated the procedure well, transferred to the recovery room in stable condition. He will be followed up in the office Tuesday for stent removal. TACOS LOPEZ M.D. [id number]
== END 2019-01-12 15:15 | disposition home or self-care (01) ==
LOC: JASU-SURG 10:14
PROVIDERS: ATTEND Urology
PROC: 0TP97DZ Removal of Intraluminal Device from Ureter, Via Natural or Artificial Opening (ICD-10-PCS; principal; 2019-01-12 12:00)
PROC: 0T767DZ Dilation of Right Ureter with Intraluminal Device, Via Natural or Artificial Opening (ICD-10-PCS; 2019-01-12 12:00)
DX: N20.1 Calculus of ureter (principal); N13.39 Other hydronephrosis
CPT/HCPCS: 76000-TC-FY; 94760

== ENCOUNTER 2019-05-14 21:01 | Emergency (ER) | payer SELFPAY ==
[2019-05-14 21:06] VITALS: BP 120/86; PULSE 77; TEMP 98.3; BMI 27.5
--- NOTE | 2019-05-14 21:08 | PDOC ---
Rapid Medical Evaluation Chief Complaint: Back Pain Time Seen by Provider: 05/14/19 21:03 Medical Evaluation: Allergies Allergy/AdvReac Type Severity Reaction Status Date / Time No Known Allergies Allergy Verified 01/11/19 16:53 05/14/19 21:05 I have performed a brief in-person evaluation of this patient. The patient presents with a chief complaint of: back pain x 3 mos, worsen this past weekend, no relief with tylenol . Had Hx of kidney stones in Dec, unsure as to same pain Pertinent physical exam findings: no bone pain/ Right lower back/ muscles , I have ordered the following: UA/ Ucx The patient will proceed to the ED for further evaluation. 05/14/19 21:07 Discharge Disposition - Diagnosis Back pain Qualifiers: Back pain location: low back pain - Referrals - Patient Instructions - Post Discharge Activity
--- NOTE | 2019-05-14 22:21 | PDOC ---
History of Present Illness - General Chief Complaint: Back Pain Stated Complaint: LOWER BACK PAIN Time Seen by Provider: 05/14/19 21:03 History Source: Patient - History of Present Illness Initial Comments: 05/14/19 22:45 38 year old male with right flank pain radiating to right lower quadrant, denies Vomiting, diarrhea, constipation, urinary symptoms. Pmhx: kidney stones s/p Stent Urologist Dr. Acuna Past History - Past Medical History Allergies/Adverse Reactions: Allergies Allergy/AdvReac Type Severity Reaction Status Date / Time No Known Allergies Allergy Verified 05/14/19 21:06 Home Medications: Ambulatory Orders Sulfamethoxazole/Trimethoprim [Bactrim Ds Tablet] 1 each PO BID 7 Days #14 tablet 01/08/19 Tamsulosin HCl [Flomax] 0.4 mg PO DAILY 7 Days #7 capsule MDD 1 tab 01/08/19 Oxycodone HCl/Acetaminophen [Percocet 5-325 mg Tablet] 1 tab PO Q8H PRN #9 tab MDD 3 tab 01/09/19 Oxycodone HCl/Acetaminophen [Oxycodone-Acetaminophen 5-325] 1 each PO Q4H PRN # 60 tablet MDD 8 01/12/19 Sulfamethoxazole/Trimethoprim [Bactrim Ds -] 1 tab PO BID #14 tablet 01/12/19 Ibuprofen 600 mg PO QID #30 tablet 05/15/19 Oxycodone HCl/Acetaminophen [Percocet 5-325 mg Tablet] 1 tab PO Q6H PRN #10 tablet MDD 4 05/15/19 Tamsulosin HCl [Flomax] 0.4 mg PO DAILY #14 cap.er.24h 05/15/19 Anemia: No Asthma: No Cancer: No Cardiac Disorders: No CVA: No COPD: No Diabetes: No Disorders: Yes HTN: No Seizures: No - Suicide/Smoking/Psychosocial Hx Smoking History: Never smoked Hx Alcohol Use: Yes (0-2/week) Drug/Substance Use Hx: No Substance Use Type: None Review of Systems - Review of Systems Able to Perform ROS?: Yes Is the patient limited Georgian proficient: No Constitutional: No: Symptoms Reported, See HPI, Chills, Diaphoresis, Fever, Loss of Appetite, Malaise, Night Sweats, Weakness, Weight Stable, Unintentional Wgt. Loss, Unexplained wgt Loss, Other HEENTM: No: Symptoms Reported, See HPI, Eye Pain, Blurred Vision, Tearing, Recent change in vision, Double Vision, Cataracts, Ear Pain, Ocular Prothesis, Ear Discharge, Nose Pain, Nose Congestion, Tinnitus, Nose Bleeding, Hearing Loss , Throat Pain, Throat Swelling, Mouth Pain, Dental Problems, Difficulty Swallowing, Mouth Swelling, Other *Physical Exam - Vital Signs Last Vital Signs Temp Pulse Resp BP Pulse Ox 98.3 F 77 18 120/86 99 05/14/19 21:03 05/14/19 21:03 05/14/19 21:03 05/14/19 21:03 05/14/19 21:03 - Physical Exam General Appearance: Yes: Appropriately Dressed Respiratory/Chest: positive: Lungs Clear, Normal Breath Sounds Cardiovascular: positive: Regular Rhythm, Regular Rate Gastrointestinal/Abdominal: positive: Normal Bowel Sounds, Soft ED Treatment Course - LABORATORY CBC & Chemistry Diagram: 05/15/19 00:21 05/15/19 00:21 Medical Decision Making - Medical Decision Making A: right obstructed stone P: labs spiral CT 05/15/19 02:[address]: Lung bases are clear. The visualized cardiac chambers are normal size and configuration. There is mild right hydronephrosis secondary to an 8 mm proximal to mid right ureteral stone. No additional stones are identified. Normal unenhanced liver, gallbladder, pancreas, spleen, adrenal glands and left kidney. The stomach and abdominal small and large bowel are normal. There is no aortic aneurysm. There is no significant retroperitoneal lymphadenopathy. The pelvic small and large bowel are normal. The appendix is normal. The urinary bladder and *DC/Admit/Observation/Transfer Diagnosis at time of Disposition: Flank pain, acute, Kidney stone on right side - Discharge Dispostion Disposition: HOME Condition at time of disposition: Stable - Prescriptions Prescriptions: Ibuprofen 600 mg PO QID #30 tablet Oxycodone HCl/Acetaminophen [Percocet 5-325 mg Tablet] 1 tab PO Q6H PRN #10 tablet MDD 4 PRN Reason: Pain Tamsulosin HCl [Flomax] 0.4 mg PO DAILY #14 cap.er.24h - Referrals Referrals: Tacos Cervantes MD [Staff Physician] - Call tomorrow - Patient Instructions Printed Discharge Instructions: Kidney Stones -- Adult Additional Instructions: Drink plenty of fluids Take Flomax as prescribed Take ibuprofen every 6 hours as needed for [id number] pain Take Percocet every 6 hours as needed for moderate pain Follow-up with a urologist as soon as possible Return to the emergency room if symptoms worsen - Post Discharge Activity Forms/Work/School Notes: Back to Work
--- NOTE | 2019-05-14 22:29 | PDOC ---
*Physical Exam - Vital Signs Last Vital Signs Temp Pulse Resp BP Pulse Ox 98.3 F 77 18 120/86 99 05/14/19 21:03 05/14/19 21:03 05/14/19 21:03 05/14/19 21:03 05/14/19 21:03 ED Treatment Course - LABORATORY CBC & Chemistry Diagram: 05/15/19 00:21 05/15/19 00:21 Medical Decision Making - Medical Decision Making 05/14/19 22:29 Patient seen by the advanced practice provider under my direct supervision. Ancillary testing reviewed as necessary. I agree with plan as outlined by the advanced practice provider. *DC/Admit/Observation/Transfer Diagnosis at time of Disposition: Flank pain, acute - Referrals - Patient Instructions - Post Discharge Activity
[2019-05-14] MEDS ORDERED: SODIUM CHLORIDE 1,000 ML IV STA (22:54)
[2019-05-14] MEDS ORDERED: KETOROLAC TROMETHAMINE 30 MG/1 ML VIAL IVPUSH ONE (22:54)
[2019-05-15] MEDS ORDERED: KETOROLAC TROMETHAMINE 30 MG/1 ML VIAL ONE (00:07)
[2019-05-15 00:35] LABS: BASO % 0.3 % (0-2.0); EOS % 1.8 % (0-4.5); HEMATOCRIT 42.9 % (35.4-49); LYMPH % 22.4 % (8-40); MCHC 32.6 g/dl (32.0-35.9); MEAN CELL VOLUME 82.9 fl (80-96); MEAN PLT VOLUME 10.3 fl (7.5-11.1); MONO % 11.4 % (3.8-10.2); NEUT % 64.1 % (42.8-82.8); PLATELET COUNT 205 K/MM3 (134-434); RBC 5.17 M/mm3 (4.00-5.60); RDW 15.7 % (11.9-15.9); WHITE BLOOD COUNT 8.1 K/mm3 (4.0-10.0)
[2019-05-15 00:44] LABS: EPI CELLS 1.3 /HPF (0-5/HPF); HYALINE CASTS 3 /lpf (0-8); PH,URINE 6.5 (5.0-8.0); URINE APPEARANCE CLEAR; URINE BACTERIA 9.8 /hpf (NEGATIVE); URINE BILIRUBIN NEGATIVE (NEGATIVE); URINE COLOR YELLOW; URINE GLUCOSE (UA) NEGATIVE (NEGATIVE); URINE KETONE TRACE (NEGATIVE); URINE LEUK ESTERASE NEGATIVE (NEGATIVE); URINE NITRITE NEGATIVE (NEGATIVE); URINE PROTEIN TRACE (NEGATIVE); URINE RBC 75 /hpf (0-4); URINE WBC 2 /hpf (0-5)
[2019-05-15 00:59] LABS: ALBUMIN 3.5 g/dl (3.4-5.0); BILIRUBIN,TOTAL 0.3 mg/dL (0.2-1); BLOOD UREA NITROGEN 13.3 mg/dL (7-18); CALCIUM 8.3 mg/dL (8.5-10.1); CREATININE 1.3 mg/dL (0.55-1.3); POTASSIUM 4.4 mmol/L (3.5-5.1); TOT PROT 6.7 g/dl (6.4-8.2)
[2019-05-15] MEDS ORDERED: TAMSULOSIN HCL 0.4 MG CAP PO ONE (03:08)
[2019-05-15] MEDS ORDERED: TAMSULOSIN HCL 0.4 MG CAP ONE (03:15)
== END 2019-05-15 03:27 | disposition home or self-care (01) ==
LOC: JER 21:01
PROC: 3E0337Z Introduction of Electrolytic and Water Balance Substance into Peripheral Vein, Percutaneous Approach (ICD-10-PCS; principal; 2019-05-14)
PROC: 3E0333Z Introduction of Anti-inflammatory into Peripheral Vein, Percutaneous Approach (ICD-10-PCS; 2019-05-14)
DX: N13.2 Hydronephrosis with renal and ureteral calculous obstruction (principal); Z87.442 Personal history of urinary calculi
CPT/HCPCS: 36415; 74176-TC; 80053; 81003; 85025; 99282-25; J7030